=== PATIENT | male | born 1970 ===

== ENCOUNTER 2020-05-17 07:38 | Observation (INO) | payer OTHER, SELFPAY ==
[2020-05-17 08:49] LABS: Basophils % (Auto) 0.4 % (0.0-1.8); Eosinophils # (Auto) 0.1 K/mm3 (0.0-0.4); Eosinophils % (Auto) 2.9 % (0.0-4.3); Hematocrit 45.1 % (35.5-45.6); Hemoglobin 15.5 gm/dl (11.8-15.2); Lymphocytes # (Auto) 1.1 K/mm3 (1.2-5.4); Lymphocytes % (Auto) 21.9 % (13.4-35.0); Mean Corpuscular HGB Conc 34 % (32-34); Mean Corpuscular Volume 90 fl (84-94); Monocytes # (Auto) 0.5 K/mm3 (0.0-0.8); Monocytes % (Auto) 10.4 % (0.0-7.3); Platelet Count 550 K/mm3 (140-440); Red Blood Count 5.01 M/mm3 (3.65-5.03); Red Cell Distribution Width 13.1 % (13.2-15.2)
[2020-05-17 09:09] LABS: Alanine Aminotransferase 34 units/L (7-56); Albumin 3.7 g/dL (3.9-5); BUN/Creatinine Ratio 13; Blood Urea Nitrogen 12 mg/dL (9-20); Calcium 8.8 mg/dL (8.4-10.2); Hemolysis Index 12
--- NOTE | 2020-05-17 09:45 | XRay Report ---
CHEST 2 VIEWS INDICATION / CLINICAL INFORMATION: r/o covid/pneumonia. COMPARISON: None available. FINDINGS: SUPPORT DEVICES: None. HEART / MEDIASTINUM: No significant abnormality. LUNGS / PLEURA: There are faint areas of interstitial density bilaterally. No edema or effusions. No pneumothorax. ADDITIONAL FINDINGS: No significant additional findings. IMPRESSION: 1. Findings likely represent atypical pneumonia. Signer Name: Koko Mart MD Signed: 05/17/2020 9:41 AM Workstation Name: [id number]
--- NOTE | 2020-05-17 09:51 | Emergency Department Report ---
ED Shortness of Breath HPI - General Chief Complaint: Nausea/Vomiting/Diarrhea Stated Complaint: DIZZY Time Seen by Provider: 05/17/20 08:38 Source: patient Mode of arrival: Ambulatory Limitations: No Limitations - History of Present Illness Initial Comments: 50-year-old male patient without significant past medical history presents with complaints of cough, shortness of breath, dizziness, and nausea/vomiting x1 week. He states the cough is dry and denies any chest pain, abdominal pain, hematemesis/coffee-ground emesis, melena/hematochezia, or fever. He does admit to some fatigue and weakness and also states he has loss of taste and smell. He describes his dizziness as room spinning and states it worsens with movement of his head and causes him to be nauseous. He denies any nasal congestion or history of vertigo, vision changes, ringing in his ears, hearing loss, headache, or numbness/tingling/weakness in his limbs. Patient also denies any known sick contacts, leg pain/swelling, hemoptysis, or recent long travel/surgeries. - Related Data Allergies Allergy/AdvReac Type Severity Reaction Status Date / Time No Known Allergies Allergy Unverified 05/17/20 07:59 ED Review of Systems ROS: Stated complaint: DIZZY Other details as noted in HPI Constitutional: malaise, weakness. denies: chills, fever Eyes: denies: eye pain, vision change ENT: denies: throat pain Respiratory: cough, shortness of breath, SOB with exertion, SOB at rest Cardiovascular: denies: chest pain Gastrointestinal: nausea, vomiting, diarrhea. denies: abdominal pain, constipation, hematemesis, melena, hematochezia Genitourinary: denies: dysuria, frequency, hematuria Skin: denies: rash, lesions Neurological: denies: headache, numbness, paresthesias Hematological/Lymphatic: denies: swollen glands ED Past Medical Hx - Past Medical History Previous Medical History?: No - Surgical History Past Surgical History?: No - Social History Smoking Status: Never Smoker Substance Use Type: None ED Physical Exam - General Limitations: No Limitations General appearance: alert, in no apparent distress - Head Head exam: Present: atraumatic, normocephalic - Eye Eye exam: Present: normal appearance, PERRL, EOMI. Absent: scleral icterus - ENT ENT exam: Present: mucous membranes moist - Neck Neck exam: Present: normal inspection - Respiratory Respiratory exam: Present: normal lung sounds bilaterally. Absent: respiratory distress - Cardiovascular Cardiovascular Exam: Present: regular rate, normal rhythm. Absent: systolic m urmur, diastolic murmur, rubs, gallop - GI/Abdominal GI/Abdominal exam: Present: soft, normal bowel sounds. Absent: distended, tenderness, guarding, rebound, rigid - Extremities Exam Extremities exam: Present: normal inspection, full ROM, other (No lower leg swelling or tenderness noted on exam) - Back Exam Back exam: Present: full ROM - Neurological Exam Neurological exam: Present: alert, oriented X3 - Psychiatric Psychiatric exam: Present: normal affect, normal mood - Skin Skin exam: Present: warm, dry, intact, normal color. Absent: rash, cyanosis, diaphoretic, erythema, petechiae, ecchymosis ED Course Vital Signs 05/17/20 07:58 Temperature 97.8 F Pulse Rate 95 H Respiratory 20 Rate Blood Pressure 137/101 O2 Sat by Pulse 98 Oximetry ED Medical Decision Making - Lab Data Result diagrams: 05/17/20 08:20 05/17/20 08:20 Lab Results 05/17/20 05/17/20 05/17/20 Range/Units 08:20 08:20 08:20 WBC 5.1 (4.5-11.0) K/mm3 RBC 5.01 (3.65-5.03) M/mm3 Hgb 15.5 H (11.8-15.2) gm/dl Hct 45.1 (35.5-45.6) % MCV 90 (84-94) fl MCH 31 (28-32) pg MCHC 34 (32-34) % RDW 13.1 L (13.2-15.2) % Plt Count 550 H (140-440) K/mm3 Lymph % (Auto) 21.9 (13.4-35.0) % [place] % (Auto) 10.4 H (0.0-7.3) % Eos % (Auto) 2.9 (0.0-4.3) % Baso % (Auto) 0.4 (0.0-1.8) % Lymph # 1.1 L (1.2-5.4) K/mm3 Walsh # 0.5 (0.0-0.8) K/mm3 Eos # 0.1 (0.0-0.4) K/mm3 Baso # 0.0 (0.0-0.1) K/mm3 Seg Neutrophils % 64.4 (40.0-70.0) % Seg Neutrophils # 3.3 (1.8-7.7) K/mm3 D-Dimer (0-234) ng/mlDDU Sodium 140 (137-145) mmol/L Potassium 4.4 (3.6-5.0) mmol/L Chloride 102.7 (98-107) mmol/L Carbon Dioxide 26 (22-30) mmol/L Anion Gap 16 mmol/L BUN 12 (9-20) mg/dL Creatinine 0.9 (0.8-1.5) mg/dL Estimated GFR > 60 ml/min BUN/Creatinine Ratio 13 % Glucose 93 (75-100) mg/dL Calcium 8.8 (8.4-10.2) mg/dL Ferritin (13.0-400.0) ng/mL Total Bilirubin 0.50 (0.1-1.2) mg/dL AST 29 (5-40) units/L ALT 34 (7-56) units/L Alkaline Phosphatase 78 (35-129) units/L Lactate Dehydrogenase 191 H (91-180) units/L Troponin T < 0.010 (0.00-0.029) ng/mL C-Reactive Protein 0.30 (0.00-1.30) mg/dL NT-Pro-B Natriuret Pep 111.3 (0-900) pg/mL Total Protein 6.6 (6.3-8.2) g/dL Albumin 3.7 L (3.9-5) g/dL Albumin/Globulin Ratio 1.3 % Procalcitonin (<0.15) ng/mL 05/17/20 05/17/20 05/17/20 Range/Units 09:58 09:58 09:58 WBC (4.5-11.0) K/mm3 RBC (3.65-5.03) M/mm3 Hgb (11.8-15.2) gm/dl Hct (35.5-45.6) % MCV (84-94) fl MCH (28-32) pg MCHC (32-34) % RDW (13.2-15.2) % Plt Count (140-440) K/mm3 Lymph % (Auto) (13.4-35.0) % Walsh % (Auto) (0.0-7.3) % Eos % (Auto) (0.0-4.3) % Baso % (Auto) (0.0-1.8) % Lymph # (1.2-5.4) K/mm3 Walsh # (0.0-0.8) K/mm3 Eos # (0.0-0.4) K/mm3 Baso # (0.0-0.1) K/mm3 Seg Neutrophils % (40.0-70.0) % Seg Neutrophils # (1.8-7.7) K/mm3 D-Dimer < 135.00 (0-234) ng/mlDDU Sodium (137-145) mmol/L Potassium (3.6-5.0) mmol/L Chloride (98-107) mmol/L Carbon Dioxide (22-30) mmol/L Anion Gap mmol/L BUN (9-20) mg/dL Creatinine (0.8-1.5) mg/dL Estimated GFR ml/min BUN/Creatinine Ratio % Glucose (75-100) mg/dL Calcium (8.4-10.2) mg/dL Ferritin 235.1 (13.0-400.0) ng/mL Total Bilirubin (0.1-1.2) mg/dL AST (5-40) units/L ALT (7-56) units/L Alkaline Phosphatase (35-129) units/L Lactate Dehydrogenase (91-180) units/L Troponin T (0.00-0.029) ng/mL C-Reactive Protein (0.00-1.30) mg/dL NT-Pro-B Natriuret Pep (0-900) pg/mL Total Protein (6.3-8.2) g/dL Albumin (3.9-5) g/dL Albumin/Globulin Ratio % Procalcitonin < 0.05 (<0.15) ng/mL - Radiology Data Radiology results: report reviewed CHEST 2 VIEWS INDICATION / CLINICAL INFORMATION: r/o covid/pneumonia. COMPARISON: None available. FINDINGS: SUPPORT DEVICES: None. HEART / MEDIASTINUM: No significant abnormality. LUNGS / PLEURA: There are faint areas of interstitial density bilaterally. No edema or effusions. No pneumothorax. ADDITIONAL FINDINGS: No significant additional findings. IMPRESSION: 1. Findings likely represent atypical pneumonia. - Medical Decision Making Patient here with shortness of breath, cough, dizziness, and loss of taste and smell. The dizziness appears to be consistent with positional vertigo. Meclizine and Zofran given. Chest x-ray shows an atypical pneumonia. White count is normal CBC. No significant abnormalities are noted on CMP. Patient is afebrile with a heart rate of 95. His symptoms and chest x-ray appear to be consistent with COVID-19 infection. Discuss[address] patient with Dr. Mendez, recommends admission to hospital medicine. Patient to be admitted via Dr. Collins. He is stable at this time. Azithromycin and Rocephin ordered IV. Critical care attestation.: If time is entered above; I have spent that time in minutes in the direct care of this critically ill patient, excluding procedure time. ED Disposition Clinical Impression: Person under investigation for COVID-19, Atypical pneumonia Disposition: 09 OP ADMIT IP TO THIS HOSP Is pt being admited?: Yes Condition: Stable Referrals: PRIMARY CARE, [Primary Care Provider] - 3-5 Days
[2020-05-17] MEDS ORDERED: MECLIZINE 25 MG TAB PO ONE (10:22)
[2020-05-17] MEDS ORDERED: ONDANSETRON 4 MG/2 ML INJ IV ONE (10:24)
[2020-05-17] MEDS ORDERED: cefTRIAXone/NS 2 GM/100 ML 2 GM/100 ML BAG IV ONE (11:06)
[2020-05-17] MEDS ORDERED: AZITHROMYCIN 500 MG in SODIUM CHLORIDE 0.9% 250ML 250 ML IV ONE (11:30)
[2020-05-17] MEDS ORDERED: ALBUTEROL 2.5 MG/3 ML NEBU IH PRN (12:23)
--- NOTE | 2020-05-17 12:25 | History and Physical Report ---
History of Present Illness Date of examination: 05/17/20 Date of admission: 05/17/20 10:24 Chief complaint: SOB History of present illness: 50-year-old male patient without significant past medical history presents with complaints of cough, shortness of breath, dizziness, and nausea/vomiting x1 week. He states the cough is dry and denies any chest pain, hematemesis or fever. He also c/o fatigue and weakness and has loss of taste and smell for about a week. He describes his dizziness as room spinning and states it worsens with movement of his head and causes him to be nauseous. His chest x-ray in the ER suggestive for bilateral interstitial infiltrate/atypical pneumonia. Patient does not have any elevated white count and serum chemistry is normal. COVID-19 PCR ordered from the ER. Patient will be admitted for further evaluation and management. Review of Systems Constitutional: malaise, weakness. denies: chills, fever Eyes: denies: eye pain, vision change ENT: denies: throat pain Respiratory: cough, shortness of breath, SOB with exertion, SOB at rest Cardiovascular: denies: chest pain Gastrointestinal: nausea, vomiting, diarrhea. denies: abdominal pain, constipation, hematemesis, melena, hematochezia Genitourinary: denies: dysuria, frequency, hematuria Skin: denies: rash, lesions Neurological: denies: headache, numbness, paresthesias Hematological/Lymphatic: denies: swollen glands Past Medical Hx - Past Medical History Previous Medical History?: No - Surgical History Past Surgical History?: No - Social History Smoking Status: Never Smoker Substance Use Type: None - Family History Previous Medical History?: None Medications and Allergies Allergies Allergy/AdvReac Type Severity Reaction Status Date / Time No Known Allergies Allergy Unverified 05/17/20 07:59 Home Medications Medication Instructions Recorded Confirmed Last Taken Type No Known Home Medications [No 05/17/20 05/17/20 Unknown History Reported Home Medications] Active Meds: Active Medications Albuterol (Proventil) 2.5 mg IH Q4HRT PRN PRN Reason: Shortness Of Breath Azithromycin 500 mg/ Sodium (Chloride) 250 mls @ 250 mls/hr IV ONCE ONE; Protocol Stop: 05/17/20 12:29 Exam - Physical Exam Narrative exam: Limited physical exam due to COVID 19 pandemic and limited PPE defer to ER physician PE for details Constitutional:alert in NAD Neck: limited due to lack of PPE Oral:limited due to lack of PPE Cardiovascular: limited due to lack of PPE Respiratory: normal lung sounds bilaterally. Absent: respiratory distress - Per Er doc GI: limited due to lack of PPE Musculoskeletal: limited due to lack of PPE Skin: No rash or abscess Hem/Lymphatic: limited due to lack of PPE Psych: no agitated Neurological: no agitated - Constitutional Vitals: Temp Pulse Resp BP Pulse Ox 97.8 F 95 H 16 137/101 98 05/17/20 07:58 05/17/20 07:58 05/17/20 11:54 05/17/20 07:58 05/17/20 11:54 HEART Score - HEART Score Troponin: Troponin T < 0.010 ng/mL (0.00-0.029) 05/17/20 08:20 Results - Labs CBC & Chem 7: 05/17/20 08:20 05/17/20 16:13 Labs: Abnormal lab results 05/17/20 05/17/20 05/17/20 Range/Units 08:20 08:20 08:20 Hgb 15.5 H (11.8-15.2) gm/dl RDW 13.1 L (13.2-15.2) % Plt Count 550 H (140-440) K/mm3 [place] % (Auto) 10.4 H (0.0-7.3) % Lymph # 1.1 L (1.2-5.4) K/mm3 Lactate Dehydrogenase 191 H (91-180) units/L Albumin 3.7 L (3.9-5) g/dL Assessment and Plan Suspected COVID19 PNA -Ordered for COVID PCR -We will monitor inflammatory markers -Continue Zithromax for now -We will consult ID if COVID is positive Dyspnea on exertion, due to pneumonia -Continue nebs as needed, patient is saturating greater than 94% in room air Dizziness, likely from dehydration - will place on iv fluid, if symptom persists then will get CT head - has no neuro deficit DVT prophylaxis, Lovenox
[2020-05-17] MEDS: SODIUM CHLORIDE 0.9% 1000 ML 1,000 ML IV SCH (14:04)
[2020-05-17 14:27] LABS: Bilirubin,Urine NEG (Negative); Blood,Urine NEG (Negative); Color,Urine Yellow (Yellow); Mucus,Urine 1+ /HPF; Protein,Urine <15 mg/dL mg/dL (Negative); RBC,Urine < 1.0 /HPF (0.0-6.0)
[2020-05-17 17:25] LABS: C-Reactive Protein 0.2 mg/dL (0.00-1.30)
[2020-05-18] MEDS: SODIUM CHLORIDE 0.9% 1000 ML 1,000 ML IV SCH (08:45)
[2020-05-18] MEDS ORDERED: AZITHROMYCIN 500 MG in SODIUM CHLORIDE 0.9% 250ML 250 ML IV SCH (10:30)
[2020-05-18] MEDS ORDERED: MECLIZINE 25 MG TAB PO PRN (11:05)
--- NOTE | 2020-05-18 12:47 | Discharge Summary ---
Providers - Providers Date of Admission: 05/17/20 10:24 Date of discharge: 05/18/20 Attending physician: KATHIE FISH 05/17/20 15:26 Consult to Physician [CONS] Routine Comment: Consulting Provider: VINAY VALERIO Physician Instructions: Reason For Exam: covid positive Primary care physician: TELEPHONE REPAIRER Hospitalization Condition: Stable Hospital course: [id number]-old male with no prior medical history admitted to the hospital with complaints of cough shortness of breath dizziness nausea and vomiting. Chest x-ray in the ER showed bilateral airspace disease. Patient was afebrile since admission with a normal white count. He became tested positive for COVID- 19. He is O2 sat remained stable in room air, inflammatory markers were stable. Blood cultures were negative. Patient was seen by ID and recommended to discharge home with outpatient follow-up. Patient verbalized understanding and was discharged home in stable condition. Imaging personally reviewed: Chest x-ray: Bilateral airspace disease Discharge diagnosis: COVID-19 pneumonia Dyspnea on exertion due to pneumonia -O2 sat was greater than 94 in room air Dizziness, likely due to dehydration, resolved Disposition: DC-01 TO HOME OR SELFCARE Core Measure Documentation - Palliative Care Palliative Care/ Comfort Measures: Not Applicable - Core Measures Any of the following diagnoses?: history only Exam - Physical Exam Narrative exam: Limited physical exam due to COVID 19 pandemic and limited PPE defer to ER physician PE for details Constitutional:alert in NAD Neck: limited due to lack of PPE Oral:limited due to lack of PPE Cardiovascular: limited due to lack of PPE Respiratory: normal lung sounds bilaterally. Absent: respiratory distress - Per Er doc GI: limited due to lack of PPE Musculoskeletal: limited due to lack of PPE Skin: No rash or abscess Hem/Lymphatic: limited due to lack of PPE Psych: no agitated Neurological: no agitated - Constitutional Vitals: Temp Pulse Resp BP Pulse Ox 97.6 F 78 18 155/106 96 05/18/20 05:54 05/18/20 05:54 05/18/20 05:54 05/18/20 05:54 05/18/20 05:54 Plan Activity: advance as tolerated Weight Bearing Status: Weight Bear as Tolerated Diet: low fat Additional Instructions: please come back if symptom worsen. Please do self quarantine up to 2 weeks from the onset of symptoms Follow up with: PRIMARY CAREMD [Primary Care Provider] - 3-5 Days SUZY AYALA MD [Staff Physician] - 7 Days Prescriptions: Albuterol INH(or & Nicu Only) [ProAir HFA Inhaler] 2 puff IH QID PRN #8.5 gram PRN Reason: Shortness Of Breath Azithromycin [Zithromax TAB] 500 mg PO QDAY #5 tablet
--- NOTE | 2020-05-18 13:25 | Consultation ---
History of Present Illness - Reason for Consult Consult date: 05/18/20 - History of Present Illness 50-year-old man past medical history none admitted to the hospital with complaints of cough, shortness of breath, dizziness, nausea vomiting. He notes symptoms began approximately 1 week prior to admission, and that the cough is without sputum production. He also denies any fevers, sweats, chills. He does, however, report a loss of taste and smell during this time. COVID-19 testing positive. Afebrile since admission with a normal white count. Currently taking azithromycin. Blood cultures currently pending. COVID-19 testing positive. Imaging personally reviewed: Chest x-ray: Bilateral airspace disease Review of Systems: Bold if positive, otherwise negative General: fevers, chills, rigors HEENT: visual disturbance, diplopia, eye pain Respiratory: cough, sputum, hemoptysis, shortness of breath Cardiovascular: chest pain, syncope Gastrointestinal: nausea, vomiting, diarrhea, abdominal pain Genitourinary: dysuria, hematuria, flank pain Musculoskeletal: neck pain, back pain, joint pain, edema Neurologic: headaches, seizures Hematologic: easy bruising or bleeding Endocrine: night sweats, acute weight loss Skin: rash, jaundice, redness Psychiatric: suicidal, homicidal ideation Past History Past Medical History: No medical history Past Surgical History: No surgical history Social history: no significant social history Family history: no significant family history Medications and Allergies Allergies Allergy/AdvReac Type Severity Reaction Status Date / Time No Known Allergies Allergy Unverified 05/17/20 07:59 Home Medications Medication Instructions Recorded Confirmed Last Taken Type Albuterol INH(or & Nicu Only) 2 puff IH QID PRN #8.5 gram 05/18/20 Unknown Rx [ProAir HFA Inhaler] Azithromycin [Zithromax TAB] 500 mg PO QDAY #5 tablet 05/18/20 Unknown Rx Active Meds: Active Medications Albuterol (Proventil) 2.5 mg IH Q4HRT PRN PRN Reason: Shortness Of Breath Azithromycin (Zithromax) 500 mg PO QDAY KHUSHBU Enoxaparin Sodium (Enoxaparin) 40 mg SUB-Q QDAY@2200 KHUSHBU Sodium Chloride (Nacl 0.9% 1000 Ml) 1,000 mls @ 100 mls/hr IV DIRECT KHUSHBU Last Admin: 05/18/20 08:45 Dose: 100 mls/hr Documented by: Meclizine HCl (Antivert) 25 mg PO Q8H PRN PRN Reason: Vertigo Physical Examination - Physical Exam Narrative exam: Physical exam deferred due to PPE conservation strategy. Please refer to prima ry team's note for detailed exam. - Constitutional Vitals: Vital Signs Temp Pulse Resp BP Pulse Ox 97.6 F 78 18 155/106 96 05/18/20 05:54 05/18/20 05:54 05/18/20 05:54 05/18/20 05:54 05/18/20 05:54 Temperature -Last 24 Hours Temperature 97.6 F Temperature 98.3 F Temperature 98.3 F Results - Labs CBC & Chem 7: 05/17/20 08:20 05/17/20 16:13 Labs: Abnormal lab results 05/17/20 05/17/20 05/17/20 Range/Units 10:40 16:11 16:13 D-Dimer 259.53 H (0-234) ng/mlDDU Glucose 139 H (75-100) mg/dL Lactate Dehydrogenase 216 H (91-180) units/L Coronavirus (PCR) Positive A (Negative) Assessment and Plan Cultures: Blood culture 05/17/2020 pending A/P: 50-year-old man no known past medical history admitted with COVID-19. #COVID-19 pneumonia: Patient on room air with normal inflammatory markers. No need for antibiotics at this time, no need for other COVID-19 therapies. Recs: -Continue supportive care -Okay for discharge from infectious disease perspective. Thank you for the consult, we will continue to follow. MD Dawn Sinclair [facility] M: [phone] O: [phone] F: [phone]
[2020-05-18 16:30] VITALS: BP 122/75
[2020-05-18] MEDS ORDERED: ENOXAPARIN 40 MG/0.4 ML INJ SUB-Q SCH (22:00)
[2020-05-19] MEDS ORDERED: AZITHROMYCIN 250 MG TAB PO SCH (10:00)
== END 2020-05-18 16:15 | disposition home or self-care (01) ==
LOC: ED 07:38 → INTOOBSV 10:24 → 3A 10:24
PROVIDERS: ADMIT Internal Medicine; ATTEND Internal Medicine
DX: U07.1 COVID-19 (principal); J18.9 Pneumonia, unspecified organism; R42 Dizziness and giddiness; R11.2 Nausea with vomiting, unspecified
CPT/HCPCS: 36415; 71046; 80053; 81001; 82728; 82947; 83615; 83880; 84145; 84484; 85025; 85379; 86140; 87040; 93005; 96361; 96365; 96366; 96367; 96375; 99285; G0378; J0456; J0696; J2405; J7030; J7050; U0003